=== PATIENT | male | born 1975 | race Caucasian/White ===

== ENCOUNTER 2016-10-07 05:05 | Emergency (ER) | payer MEDICAID ==
[2016-08-14 17:20] VITALS: BMI 26.6
[~2016-10-07 05:05] MED LIST: DILANTIN100 MG PO; XANAX1 MG PO
== END 2016-10-07 05:28 | disposition home or self-care (01) ==
LOC: D.ER 05:05
DX: I10 Essential (primary) hypertension (principal); F41.1 Generalized anxiety disorder; F17.200 Nicotine dependence, unspecified, uncomplicated

== ENCOUNTER 2017-01-26 06:12 | Emergency (ER) | payer MEDICAID ==
[2016-08-14 17:20] VITALS: BMI 26.6
== END 2017-01-26 06:59 | disposition home or self-care (01) ==
LOC: D.ER 06:12
DX: F41.9 Anxiety disorder, unspecified (principal); I10 Essential (primary) hypertension; F17.200 Nicotine dependence, unspecified, uncomplicated

== ENCOUNTER 2017-04-05 05:46 | Emergency (ER) | payer MEDICAID ==
[2016-08-14 17:20] VITALS: BMI 26.6
== END 2017-04-05 06:14 | disposition home or self-care (01) ==
LOC: D.ER 05:46
DX: Z76.0 Encounter for issue of repeat prescription (principal); F41.9 Anxiety disorder, unspecified; I10 Essential (primary) hypertension; F17.200 Nicotine dependence, unspecified, uncomplicated

== ENCOUNTER 2017-05-23 06:20 | Emergency (ER) | payer MEDICAID ==
[2016-08-14 17:20] VITALS: BMI 26.6
== END 2017-05-23 07:15 | disposition home or self-care (01) ==
LOC: D.ER 06:20
DX: H61.22 Impacted cerumen, left ear (principal); F41.9 Anxiety disorder, unspecified; I10 Essential (primary) hypertension; H92.02 Otalgia, left ear; F17.200 Nicotine dependence, unspecified, uncomplicated; F14.90 Cocaine use, unspecified, uncomplicated

== ENCOUNTER 2017-07-12 06:40 | Emergency (ER) | payer SELFPAY ==
[2016-08-14 17:20] VITALS: BMI 26.6
== END 2017-07-12 07:25 | disposition home or self-care (01) ==
LOC: D.ER 06:40
DX: F41.9 Anxiety disorder, unspecified (principal); I10 Essential (primary) hypertension; F17.200 Nicotine dependence, unspecified, uncomplicated